=== PATIENT | female | born 1985 | race Caucasian/White ===

== ENCOUNTER 2017-04-20 19:08 | Emergency (ER) | payer OTHER ==
[2017-04-20 20:34] LABS: Hematocrit 41.8 % (37.0-47.0); Mean Cell Volume 89.7 fl (78-100); Mean Corpuscular Hgb Conc 33.5 g/dl (32-36); Mean Platelet Volume 9.7 fl (6.0-9.5); Neutrophil # 6.1 K/mm3 (1.3-6.0); Neutrophil % 62.6 % (42-75.0); Platelet Count 297 K/mm3 (150-450); Red Blood Count 4.66 M/mm3 (4.2-5.4); Red Cell Distribution Width 12.7 % (11.5-14.0); White Blood Count 9.7 K/mm3 (4.0-10.5)
[2017-04-20 20:50] LABS: Albumin * 4.2 gm/dl (3.4-5.0); Anion Gap 15.5 mmol/L (6.8-13.8); BUN/Creatinine Ratio 22.5 (9.0-21.6); Bilirubin, Total 0.3 mg/dL (0.0-1.1); Calcium * 9.5 mg/dL (7.9-10.9); Carbon Dioxide 26.3 mmol/L (24-32.6); Potassium 3.8 mmol/L (3.4-4.6); Total Protein 7.9 gm/dL (6.2-8.2)
[2017-04-20] MEDS ORDERED: HYDROmorphone HCL 1 MG/ML DISP.SYRIN IV ONE (21:01)
[2017-04-20] MEDS ORDERED: ONDANSETRON HCL/PF 2 MG/ML VIAL IV ONE (21:01)
[2017-04-20] MEDS ORDERED: HYDROmorphone HCL 1 MG/ML DISP.SYRIN ONE (21:06)
[2017-04-20] MEDS ORDERED: ONDANSETRON HCL/PF 2 MG/ML VIAL ONE (21:06)
[2017-04-20 21:10] LABS: Urine Bilirubin Negative (NEGATIVE); Urine Blood Negative /ul (NEGATIVE); Urine Ketone Negative (NEGATIVE); Urine Nitrite Negative (NEGATIVE); Urine Protein Negative (NEGATIVE); Urine Urobilinogen Normal (NORMAL)
[2017-04-20 21:28] LABS: Urine Appearance Clear; Urine Color Yellow
[2017-04-20 21:29] LABS: Urine Bacteria 1+; Urine RBC None Seen /hpf (0-5); Urine WBC 0-5 /hpf (0-5)
--- NOTE | 2017-04-20 22:26 | ERNOTE ---
Abdominal HPI - Narrative Date of Service: 04/20/17 - General Chief Complaint: Abdominal Pain Time Seen by Provider: 04/20/17 20:02 Source: patient - Immun/Allergies/Home Medications Immunizatons: IMMUNIZATION HX Immunizations Up to Date Yes History of Influenza Vaccine No Hx Pneumococcal Vaccination No Allergies/Adverse Reactions: Allergies ciprofloxacin [From Cipro] Allergy (Unknown, Verified 04/17/17 09:50) Hives Home Medications: HOME MEDICATIONS NK [No Home Medication] 04/17/17 [Last Taken Unknown] - History of Present Illness Narrative: patient presented to the Ed for left rib pain from a previous injury from a week ago r/t falling into a shelf. patient states she had been feeling better when she sneezed today and her pain returned. patient denies shortness of breath or cough. patient has left lower rib pain Date (Duration): 04/20/17 Timing: intermittent Quality: mild Activities at Onset: other - sneezed Modifying Factors - (Improves): Present: rest Modifying Factors - (Worsens): Present: movement Associated Symptoms: Present: denies symptoms Prior Abdominal Problems: Present: recent trauma Review of Systems - Review of Systems Constitutional: Present: See HPI EYE: Present: no symptoms reported ENT: Present: no symptoms reported Respiratory: Present: no symptoms reported Cardiology: Present: no symptoms reported Gastrointestinal/Abdominal: Present: no symptoms reported Genitourinary: Present: no symptoms reported Musculoskeletal: Present: no symptoms reported Skin: Present: no symptoms reported Neurological: Present: no symptoms reported Endocrine: Present: no symptoms reported Hematologic/Lymphatic: Present: no symptoms reported Psych: Present: no symptoms reported - Patient's Past Medical History Patient History - Medical: No pertinent hx Patient History - Cardiac/Respiratory: No pertinent hx Patient History - Cancer: No Hx of Cancer Patient History - Surgical Procedures: Appendectomy - Social History Smoking Status: Never smoker - Immunizations Immunizations Up to Date: Yes Hx Pneumococcal Vaccination: No History of Influenza Vaccine: No Physical Exam - Physical Exam Narrative: patient has an area alongher left lower rib that is tender an swollen. patient lung sounds are clear and she is able to breath without difficulty. General Appearance: Present: wd/wn, alert, mild distress Head Exam: Present: normal inspection, no evidence of injury Eye Exam: Normal inspection: bilateral, PERRL: bilateral, EOMI: bilateral Ears, Nose, Throat: Present: normal ENT inspection, normal pharynx Neck: Present: normal inspection, nontender, supple, full range of motion Respiratory: Present: no respiratory distress, normal breath sounds, no accessory muscle use, chest nontender, lungs clear Cardiovascular/Chest: Present: regular rate, rhythm, no murmur, normal peripheral pulses Peripheral Pulses: N=norm/S=strong/W=weak/B=bound/A=absent: Radial (R): Normal, Radial (L): Normal, Dorsalis-pedis (R): Normal, Dorsalis-pedis (L): Normal Gastrointestinal/Abdominal: Present: normal bowel sounds, nondistended, soft, no organomegaly, tenderness - left upper quad. Back Exam: Present: normal inspection, normal range of motion, no CVA tenderness , no vertebral tenderness Extremity Exam: Present: normal inspection, non-tender, normal range of motion, no edema Neurological Exam: Present: alert, oriented, normal mood/affect, no motor/ sensory deficits Skin Exam: Present: normal color, warm/dry Lymphatic Exam: Present: no adenopathy ED Progress - Results and Orders Patient's Lab Results:: I have reviewed the patient's lab results. - Vital Signs Patient's Vital Signs:: I have reviewed the patient's vital signs. Vital Signs: Vital Signs 04/20/17 04/20/17 19:15 20:13 Temperature 37.2 C 37.2 C Pulse Rate 76 76 Respiratory 22 H 22 H Rate Blood Pressure 147/97 160/96 O2 Sat by Pulse 99 98 Oximetry - CT/Ultrasound CT/Ultrasound Narrative: [facility] PATIENT RADIOLOGY STUDY REPORT Patient Patient Name:JOSEPH EUGENE Date: 1985 Sex: F Order Number: [id number] Unique Exam ID: [id number] Exam Requested: ABD W/O - CT Abdomen W/O Date Scheduled: 04-20-2017 09:27 PM Study Priority: Requesting Service: Requesting Physician: Darrian Veronica Reason for Exam: fall with pain Radiological Report : [facility] [address] [place] [id number] NAME: JOSEPH EUGENE : 1985 MR #: [id number] CC: Darrian Veronica [employer] OPERATOR; Meliton Mario MD LOC: ER ADM DATE: X-RAY REPORT [id number] CT/CT Abdomen W/O Exam Date: 04/20/2017 21:27 Ordering Physician: Darrian Veronica History: Fall with pain. Left-sided pain. Left upper quadrant pain. TECHNIQUE: Helical imaging from the lung bases to the iliac crests performed without IV and without oral contrast enhancement. Exam was ordered without IV and without oral contrast. Axial and coronal reformatted images performed. Individualized dose optimization technique was used for the performed procedure including automated exposure control, adjustment of the MA and or KV according to patient size and/or use of iterative reconstruction technique. FINDINGS: Traumatic organ injury cannot be adequately evaluated without IV contrast. Without imaging of the pelvis, the bowel, peritoneum, and retroperitoneum are incompletely evaluated and hemoperitoneum cannot be excluded. There are calcified granuloma in the lung bases. There is some bibasilar consolidation that appears to be atelectasis. No subcutaneous density to suggest flank hematoma identified. IMPRESSION: NO ACUTE ABDOMINAL PATHOLOGY IDENTIFIED WITHIN THE LIMITATIONS OF A NONCONTRAST STUDY. MILD BIBASILAR CONSOLIDATION FELT TO BE ATELECTASIS. Electronically signed by Surendra Velazquez M.D.. Surendra Velazquez MD Dict: [id number] Typed: 11/02/17 [id number] , Approved by: Surendra Velazquez Approval Date: 04-20-2017 Approval Time: 09:42 PM THIS REPORT WAS RECEIVED FROM THE [employer] SYSTEM - Progress/Reassessment Chief Complaint: Abdominal Pain Progress:: Improved Plan - Plan Plan: patient is to keep her follow up apt and contact her [facility] provider in the AM. she was instructed to return for increased pain and/or shortness of breathing, Departure Clinical Impression: Contusion of abdominal wall Qualifiers: Encounter type: subsequent encounter Qualified Code(s): S30.1XXD - Contusion of abdominal wall, subsequent encounter - Departure Disposition: Home Follow Up Needed Condition: Stable Instructions: Rib Contusion Additional Instructions: continue to keep your follow up apt. call your doctor and let them know that you were seen in the Ed tonight. cont any previous home medications as directed. return if you have any increase in pain or develop any new symptoms or shortness of breath. Referrals: Meliton Mairo MD [Primary Care Provider] -
[2017-04-20 23:07] VITALS: BP 134/70
== END 2017-04-20 22:55 | disposition home or self-care (01) ==
LOC: ER 19:08
DX: S30.1XXD Contusion of abdominal wall, subsequent encounter (principal); W18.30XS Fall on same level, unspecified, sequela
CPT/HCPCS: 36415; 74150; 80053; 81001; 83690; 84703; 85025; 96374; 96375; 99284; J2405